=== PATIENT | female | born 1970 | race Caucasian/White ===

== ENCOUNTER → 2018-06-01 | Day surgery (SDC) | payer OTHER ==
[2018-05-10 08:26] VITALS: Ht 165.1 cm; Wt 95.5 kg
[~2018-06-01] VITALS: Ht 165.1 cm; Wt 95.5 kg
[~2018-06-01] MED LIST: ACET-1311 PO; ACET300T3 PO; ATROPINE SULFATE 0.1 MG/ML 5ML SYR IV PRN; BUPIVACAINE/EPINEPHRINE 0.5% MPF 1:200,000 30 ML VIAL ONE; CEFAZOLIN 2000MG IV PUSH 15 ML IV SCH; EpHEDrine SULFATE INJ 50 MG/ML AMP IV PRN; FENTANYL CITRATE INJ 50 MCG/1 ML 2 ML VIAL IV PRN; FENTANYL CITRATE INJ 50 MCG/1 ML 2 ML VIAL ONE; FIBERWELL PO; IBUP-1050 PO; LACTATED RINGER'S 1000ML 1,000 ML IV SCH; LIDOCAINE HCL 2% 2 ML VIAL (20MG/ML) ONE; LIDOCAINE HCL 2% LOCAL 20 ML VIAL ONE; MIDAZOLAM HCL 1 MG/ML 2ML VIAL ONE; MULT-506 PO; OMAL150S INJ; ONDANSETRON INJ 2 MG/ML 2 ML VIAL IV PRN; OXYCODONE/ACETAMINOPHEN 5-325 TAB PO PRN; PRLSR20 PO; PROPOFOL IV EMULSION 10 MG/ML 20 ML VIAL ONE; SODIUM CHLORIDE 0.9% 1000ML 1,000 ML IV SCH
--- NOTE | 2018-06-01 07:57 | History & Physical Bridge - [place] ---
H&P Re-Evaluation Bridge Note: I have examined the patient, reviewed the History & Physical and in the interval since the performance of the History & Physical I have noted the following changes of clinical significance: No changes noted
--- NOTE | 2018-06-01 08:36 | [facility] Post Operative Brief Note ---
Immediate Operative Summary Operative Date Jun 01, 2018. Pre-Operative Diagnosis Right Carpal Tunnel Syndrome Post-Operative Diagnosis Same Procedure(s) Performed Right Carpal Tunnel Release Surgeon Dr. Espinoza Glassie Surgeon(s) Maria Antonia Castañeda PA-C Estimated Blood Loss Minimal Findings Consistent with Post-Op Diagnosis Specimens None Anesthesia Type MAC Complication(s) none Disposition Accompanied Pt To Recovery: no Disposition: Recovery Room / PACU
[2018-06-01 08:39] VITALS: TEMP 36.5
--- NOTE | 2018-06-01 08:42 | Discharge Instructions-SurgCtr ---
Discharge Instructions Date of Service Jun 01, 2018. Visit Reason for Visit: Right Carpal Tunnel Syndrome Discharge Discharge Diagnosis / Problem: SAME ABOVE Discharge Goals Goal(s): Decrease discomfort, Improve function Activity Recommendations Activity Limitations: as noted below Lifting Limitations: until after follow-up appointment Shower/Bathe: keep incision dry Anesthesia . Post Anesthesia Instructions: If you have had General Anesthesia or IV Sedation: * Do not drive today. * Resume driving when surgeon permits. * Do not make important decisions or sign legal documents today. * Call surgeon for: 1. Temperature elevations greater than 101 degrees F. 2. Uncontrollable pain. 3. Excessive bleeding. 4. Persistent nausea and vomiting. 5. Medication intolerance (nausea, vomiting or rash). * For nausea and vomiting use only clear liquids such as: tea, soda, bouillon until nausea subsides, then gradually increase diet as tolerated. * If you have any concerns or questions, call your surgeon's office. If physician is unavailable and it is an emergency, call 911 or go to the nearest emergency room. . Instructions / Follow-Up Instructions / Follow-Up MEDICATIONS: * Resume previous medications unless instructed otherwise by your surgeon. * Always take pain medication on a full stomach or with food to avoid upset stomach. * Do not drink alcohol or drive while taking narcotics. * Ibuprofen or Tylenol may be taken if narcotic not needed. SPECIAL CARE INSTRUCTIONS: __ None _X_ Keep extremity elevated and iced x 48 hours; apply ice 20-30 minutes 8-10 times/day. May remove at night. __ Sling __24 hrs/day __ Remove at night __ Shoulder Immobilizer __ 24 hrs/day __ Remove at night _X_ Dressing _X_ Maintain until seen in office, may shower with plastic over site __ Remove dressings in 24-48 hours and then may shower __ Cover incisions with band-aids after showering __ Do not remove steri-strips Call physician if chills or temperature rises above 102 degrees or pain unrelieved by prescribed pain medications at . . Diet Recommendations Home Diet: resume previous diet Procedures Procedures Performed: Right Carpal Tunnel Release Pending Studies Studies pending at discharge: no Medical Emergencies . Who to Call and When: Medical Emergencies: If at any time you feel your situation is an emergency, please call 911 immediately. . Non-Emergent Contact Non-Emergency issues call your: Primary Care Provider . . "Provider Documentation" section prepared by Dann Castañeda. .
[2018-06-01 08:58] VITALS: BP 118/81; PULSE 63; O2SAT 99
--- NOTE | 2018-06-01 09:02 | Anesthesia Progress Nt - [facility] ---
Anesthesia Post Op Note Date & Time Jun 01, 2018 at 09:01 Vital Signs Pain Intensity: 0 Vital Signs Past 12 Hours Date Time Temp Pulse Resp B/P (MAP) Pulse Ox O2 Delivery O2 Flow Rate FiO2 06/01/18 08:58 63 16 118/81 (93) 99 Room Air 06/01/18 08:39 36.5 60 16 111/76 (88) 94 Room Air 06/01/18 06:53 36.3 66 18 133/88 (103) 98 Room Air Notes Mental Status: alert / awake / arousable, participated in evaluation Pt Amnestic to Procedure: Yes Nausea / Vomiting: adequately controlled Pain: adequately controlled Airway Patency, RR, SpO2: stable & adequate BP & HR: stable & adequate Hydration State: stable & adequate Anesthetic Complications: no major complications apparent
--- NOTE | 2018-06-01 18:54 | OPERATIVE REPORT ---
DATE OF OPERATION: 06/01/2018 SURGEON: Ashwin Espinoza M.D. PRESS CATCHER: Dann Castañeda PA-C. PREOPERATIVE DIAGNOSES: 1. Right carpal tunnel syndrome. 2. Two weeks out from left carpal tunnel release. POSTOPERATIVE DIAGNOSES: 1. Right carpal tunnel syndrome. 2. Two weeks out from left carpal tunnel release. PROCEDURES PERFORMED: 1. Right carpal tunnel release. 2. Suture removal from the left hand. COMPLICATIONS: None. ESTIMATED BLOOD LOSS: Minimal. TOURNIQUET TIME: 5 minutes at 250 mmHg. ANESTHESIA: Local with IV sedation. OPERATIVE INDICATIONS: The patient is a 48-year-old white female who has had a fairly long history of bilateral hand pain, discomfort, numbness consistent with classic carpal tunnel syndrome. She had failed conservative treatment. She had nerve studies, which revealed carpal tunnel syndrome on both hands. She underwent a left carpal tunnel release two weeks ago. She now elected to proceed with right carpal tunnel release as well as suture removal from the left hand. OPERATIVE PROCEDURE: The patient taken to the operating room, identified and placed on the operating table in supine position. All contact areas were appropriately padded. IV antibiotics were provided by anesthesia team. A right forearm tourniquet was placed. Some IV sedation was provided. The right hand was cleaned with alcohol. A 9 mL of a 50:50 combination of 0.5% Marcaine with epinephrine and 2% lidocaine were then injected in and around the proposed incision site of the right hand. Once this was complete, I then removed the sutures from the left hand and placed Steri-Strips over that incision site. The right hand was then prepped and draped in usual sterile fashion. The right arm was elevated and exsanguinated with Esmarch and tourniquet placed at 250 mmHg. A 2.5-3 cm incision was made in the palm just ulnar to the palmaris longus tendon. Blunt dissection was carried through subcutaneous tissue down to the level of the palmar fascia. The palmar fascia was incised longitudinally in line with skin incision. The underlying transverse carpal ligament was identified. It was transected distally with use of a [place] blade knife and then bluntly spread. Attention was then drawn proximally. Blunt dissection was carried out above and below the ligament proximally. The ligament transected from minimum distance of 3 cm proximal to the wrist flexion crease. The ligament was bluntly spread and found to be completely released. The wound was irrigated with copious amounts of normal saline. The tourniquet was then let down for final tourniquet time of 5 minutes. Hemostasis was assured using electrocautery. The wound was once again irrigated and the skin was then closed with 5-0 nylon suture in a horizontal mattress fashion. The hand was then cleaned, dried and a sterile dressing of Xeroform, 4 x 4's, sterile cast padding and Luís bandage were applied. The patient was then transferred to the recovery room in stable condition. The patient tolerated the procedure well with no complication. All needle and sponge counts were correct at the end of the operation. I attest to the content of the Intraoperative Record and any orders documented therein. Any exception s are noted below.
== END | disposition home or self-care (01) ==
LOC: X.SURG 06:44
PROVIDERS: ATTEND Orthopaedic Surgery Sports Medicine
DX: G56.01 Carpal tunnel syndrome, right upper limb (principal); E66.9 Obesity, unspecified; Z68.35 Body mass index [BMI] 35.0-35.9, adult